=== PATIENT | female | born 1955 | race African-American/Black ===

== ENCOUNTER 2021-03-25 14:02 | Inpatient (IN) ==
[2021-03-25] MEDS ORDERED: HYDROmorphone 2 MG/1 ML VIAL IV STA (14:26)
[2021-03-25] MEDS ORDERED: ONDANSETRON 4 MG/2 ML VIAL IV STA (14:26)
[2021-03-25 14:53] LABS: Basophils % 0.3 % (0.0-0.8); Eosinophils # 0.2 10*3/uL (0.0-0.87); Eosinophils % 2.6 % (0.00-10.9); Hematocrit 33.9 VOL% (35.7-47.0); Hemoglobin 11.2 GM/DL (12.0-16.0); Immature Granulocytes % 0.7 %; Immature Granulocytes Absolute 0.05 #; Lymphocytes # 1.6 10*3/uL (1.4-4.0); Lymphocytes % 22.2 % (21.3-54.2); Mean Corpuscular Volume 93.9 FL (87-102); Mean Platelet Volume 11.4 FL (9.6-12.0); Monocytes % 5.8 % (1.7-12.7); Neutrophils % 68.4 % (38.7-73.9); Platelet Count 168 T/CUMM (130-400); Red Blood Count 3.61 MC/CUMM (3.8-5.5); Red Cell Distribution Width 12.1 % (9.3-17.3); White Blood Count 7.3 T/CUMM (4-12)
[2021-03-25 14:59] LABS: ABG Base Excess -0.6 MMOL/L (-2.5-2.5); ABG HCO3 25.6 MMOL/L (20-26); ABG Oxygen Saturation 87.4 % (95-100); ABG PCO2 48.9 MM HG (35-48); ABG PH 7.337 (7.35-7.45); ABG PO2 60.4 MM HG (80-95); ABG TCO2 27.1 MMOL/L (23-27)
[2021-03-25 15:03] LABS: INR 1.2; PT Patient Result 13.1 SECS (10.5-12.0); Partial Thromboplastin Time 27.2 SECS (23.9-33.8)
[2021-03-25 15:13] LABS: Alanine Aminotransferase 30 U/L (13-56); Albumin 3.6 G/DL (3.4-5.0); Alkaline Phosphatase 97 U/L (45-117); Aspartate Amino Transferase 36 U/L (0-37); Blood Urea Nitrogen 16 MG/DL (7-18); Calcium 9.5 MG/DL (8.5-10.1); Carbon Dioxide 27 MMOL/L (21-32); Estimated Glom Filtration Rate 68 ML/MIN; Glucose 201 MG/DL (74-106); Osmolality,Calculated 283.5 MOS/KG (273-304); Potassium 3.6 MMOL/L (3.5-5.1); Sodium 139 MMOL/L (136-145); Total Protein 7.5 G/DL (6.4-8.2)
[2021-03-25 16:01] LABS: Bilirubin,Urine Negative (Negative); Blood, Urine Negative (Negative); Glucose,Urine (UA) >=500 mg/dL (Negative); Ketones,Urine Negative (Negative); Nitrite,Urine Negative (Negative); Protein,Urine Negative; Squamous Epithelial Cell,Urine Occasional /HPF (0-10); Urine Appearance Slightly Hazy (Clear); Urine Color Yellow (Yellow); Urine Specific Gravity 1.033 (1.001-1.035); Urine Urobilinogen < 2.0 EU/DL (0.2-1.0)
[2021-03-25 16:10] LABS: Barbiturates Screen,Urine Negative (Negative); Benzodiazepines Screen,Urine Positive (Negative); Cannabinoid Screen,Urine Negative (Negative); Opiate Screen,Urine Positive (Negative); Phencyclidine Screen,Urine Negative (Negative)
[2021-03-25] MEDS ORDERED: GLUCAGON 1 MG VIAL IM PRN (16:30)
[2021-03-25] MEDS ORDERED: ONDANSETRON 4 MG/2 ML VIAL IV PRN (16:30)
[2021-03-25] MEDS ORDERED: DEXTROSE 50% 25 GM/50 ML VIAL IV PRN (16:30)
[2021-03-25] MEDS ORDERED: ACETAMINOPHEN 325 MG TABLET PO PRN (16:30)
[2021-03-25] MEDS: LACTATED RINGERS 1,000 ML IV SCH (16:53)
[2021-03-25] MEDS: INSULIN REGULAR 100 UNIT/ML SUBCUT SCH ×2 (16:54→21:04)
[2021-03-25] MEDS: GABAPENTIN 300 MG CAPSULE PO SCH (21:04)
[2021-03-26] MEDS: HYDROmorphone 2 MG/1 ML VIAL IV PRN ×2 (03:46→15:09)
[2021-03-26 05:50] LABS: Basophils % 0.1 % (0.0-0.8); Eosinophils # 0.1 10*3/uL (0.0-0.87); Hemoglobin 10.6 GM/DL (12.0-16.0); Immature Granulocytes % 0.3 %; Immature Granulocytes Absolute 0.03 #; Lymphocytes # 1.9 10*3/uL (1.4-4.0); Lymphocytes % 22.1 % (21.3-54.2); Mean Corpuscular HGB Conc 32.1 GM/DL (32-36); Mean Corpuscular Volume 95.4 FL (87-102); Mean Platelet Volume 12.1 FL (9.6-12.0); Monocytes % 5.9 % (1.7-12.7); Neutrophils % 70.6 % (38.7-73.9); Platelet Count 177 T/CUMM (130-400); Red Blood Count 3.46 MC/CUMM (3.8-5.5); Red Cell Distribution Width 12.1 % (9.3-17.3); White Blood Count 8.8 T/CUMM (4-12)
[2021-03-26 06:16] LABS: Calcium 9.2 MG/DL (8.5-10.1); Osmolality,Calculated 276.8 MOS/KG (273-304); Potassium 3.7 MMOL/L (3.5-5.1)
[2021-03-26] MEDS: GABAPENTIN 300 MG CAPSULE PO SCH ×3 (08:24→20:21)
[2021-03-26] MEDS: PANTOPRAZOLE 40 MG TABLET PO SCH (08:24)
[2021-03-26] MEDS: INSULIN REGULAR 100 UNIT/ML SUBCUT SCH ×4 (08:41→20:22)
[2021-03-26] MEDS: METOPROLOL TARTRATE 50 MG TABLET PO SCH (09:30)
[2021-03-26] MEDS ORDERED: TUBERCULIN SKIN TEST 0.1 ML SYRINGE INTRADERM ONE (11:34)
[2021-03-26] MEDS: LACTATED RINGERS 1,000 ML IV SCH (12:55)
[2021-03-26] MEDS: metFORMIN 500 MG TABLET PO SCH (17:16)
[2021-03-27] MEDS: LACTATED RINGERS 1,000 ML IV SCH ×3 (04:40→20:47)
[2021-03-27] MEDS: INSULIN REGULAR 100 UNIT/ML SUBCUT SCH ×4 (07:35→20:46)
[2021-03-27 07:47] LABS: Basophils % 0.3 % (0.0-0.8); Eosinophils # 0.1 10*3/uL (0.0-0.87); Eosinophils % 2.1 % (0.00-10.9); Hematocrit 31.9 VOL% (35.7-47.0); Hemoglobin 10.6 GM/DL (12.0-16.0); Immature Granulocytes % 0.1 %; Immature Granulocytes Absolute 0.01 #; Lymphocytes % 28.6 % (21.3-54.2); Mean Corpuscular HGB Conc 33.2 GM/DL (32-36); Mean Corpuscular Volume 93.3 FL (87-102); Mean Platelet Volume 11.5 FL (9.6-12.0); Monocytes % 7.2 % (1.7-12.7); Neutrophils % 61.7 % (38.7-73.9); Platelet Count 153 T/CUMM (130-400); Red Blood Count 3.42 MC/CUMM (3.8-5.5); Red Cell Distribution Width 11.9 % (9.3-17.3); White Blood Count 6.8 T/CUMM (4-12)
[2021-03-27 08:08] LABS: Calcium 8.8 MG/DL (8.5-10.1); Osmolality,Calculated 275.7 MOS/KG (273-304); Potassium 4.1 MMOL/L (3.5-5.1)
[2021-03-27] MEDS: metFORMIN 500 MG TABLET PO SCH ×2 (08:17→16:05)
[2021-03-27] MEDS: METOPROLOL TARTRATE 50 MG TABLET PO SCH (08:17)
[2021-03-27] MEDS: PANTOPRAZOLE 40 MG TABLET PO SCH (08:17)
[2021-03-27] MEDS: GABAPENTIN 300 MG CAPSULE PO SCH ×3 (08:17→20:46)
[2021-03-28] MEDS: LACTATED RINGERS 1,000 ML IV SCH ×2 (04:24→17:07)
[2021-03-28] MEDS: INSULIN REGULAR 100 UNIT/ML SUBCUT SCH ×4 (07:18→21:30)
[2021-03-28] MEDS: METOPROLOL TARTRATE 50 MG TABLET PO SCH (09:25)
[2021-03-28] MEDS: metFORMIN 500 MG TABLET PO SCH ×2 (09:25→16:24)
[2021-03-28] MEDS: GABAPENTIN 300 MG CAPSULE PO SCH ×3 (09:25→21:27)
[2021-03-28] MEDS: PANTOPRAZOLE 40 MG TABLET PO SCH (09:34)
[2021-03-28] MEDS: LINACLOTIDE 145 MCG CAPSULE PO SCH (09:34)
[2021-03-28] MEDS ORDERED: ROPIVACAINE 0.5% 30 ML VIAL ONE (10:20)
[2021-03-28] MEDS ORDERED: LIDOCAINE 1% 20 ML VIAL ONE (10:20)
[2021-03-28] MEDS ORDERED: methylPREDNISolone ACETATE 40 MG/1 ML VIAL ONE (10:20)
[2021-03-28] MEDS ORDERED: LIDOCAINE 2% 5 ML VIAL ONE (10:27)
[2021-03-28] MEDS ORDERED: propofoL 200 MG/20 ML VIAL IV ONE (10:27)
[2021-03-28] MEDS ORDERED: fentaNYL 100 MCG/2 ML VIAL ONE (10:27)
[2021-03-28] MEDS ORDERED: GLYCOPYRROLATE 0.4 MG/2 ML VIAL ONE (10:27)
[2021-03-28] MEDS ORDERED: KETAMINE 500 MG/10 ML VIAL ONE (10:28)
[2021-03-28] MEDS ORDERED: MIDAZOLAM 2 MG/2 ML VIAL ONE (10:28)
[2021-03-28] MEDS ORDERED: SODIUM CHLORIDE 0.9% 100 ML IV ONE (10:29)
[2021-03-28] MEDS ORDERED: DEXAMETHASONE 10 MG/1 ML VIAL ONE (11:29)
[2021-03-28] MEDS ORDERED: LACTATED RINGERS 1,000 ML IV SCH (11:30)
[2021-03-28] MEDS ORDERED: TISSUE ADHESIVE 1 EACH APPLICATOR TOP ONE (11:41)
[2021-03-28] MEDS ORDERED: ceFAZolin 1,000 MG VIAL ONE (11:43)
[2021-03-29 06:43] LABS: Basophils % 0.2 % (0.0-0.8); Eosinophils % 0.2 % (0.00-10.9); Hematocrit 27.1 VOL% (35.7-47.0); Hemoglobin 9.3 GM/DL (12.0-16.0); Immature Granulocytes % 0.4 %; Immature Granulocytes Absolute 0.02 #; Lymphocytes # 1.1 10*3/uL (1.4-4.0); Lymphocytes % 19.7 % (21.3-54.2); Mean Corpuscular HGB Conc 34.3 GM/DL (32-36); Mean Corpuscular Volume 91.2 FL (87-102); Mean Platelet Volume 11.3 FL (9.6-12.0); Monocytes % 7.1 % (1.7-12.7); Neutrophils % 72.4 % (38.7-73.9); Platelet Count 165 T/CUMM (130-400); Red Blood Count 2.97 MC/CUMM (3.8-5.5); Red Cell Distribution Width 11.8 % (9.3-17.3); White Blood Count 5.5 T/CUMM (4-12)
[2021-03-29 07:11] LABS: Calcium 8.8 MG/DL (8.5-10.1); Osmolality,Calculated 278.5 MOS/KG (273-304); Potassium 3.7 MMOL/L (3.5-5.1)
[2021-03-29] MEDS: INSULIN REGULAR 100 UNIT/ML SUBCUT SCH ×4 (07:42→20:44)
[2021-03-29] MEDS: PANTOPRAZOLE 40 MG TABLET PO SCH (08:45)
[2021-03-29] MEDS: METOPROLOL TARTRATE 50 MG TABLET PO SCH (08:45)
[2021-03-29] MEDS: metFORMIN 500 MG TABLET PO SCH ×2 (08:45→17:15)
[2021-03-29] MEDS: GABAPENTIN 300 MG CAPSULE PO SCH ×3 (08:45→20:44)
[2021-03-29] MEDS: LINACLOTIDE 145 MCG CAPSULE PO SCH (08:45)
[2021-03-29] MEDS: LACTATED RINGERS 1,000 ML IV SCH (11:26)
[2021-03-29] MEDS: HYDROmorphone 2 MG/1 ML VIAL IV PRN (12:16)
[2021-03-30] MEDS: LACTATED RINGERS 1,000 ML IV SCH (06:43)
[2021-03-30] MEDS: INSULIN REGULAR 100 UNIT/ML SUBCUT SCH ×4 (07:34→20:30)
[2021-03-30] MEDS: metFORMIN 500 MG TABLET PO SCH ×2 (09:09→17:28)
[2021-03-30] MEDS: GABAPENTIN 300 MG CAPSULE PO SCH ×3 (09:09→20:28)
[2021-03-30] MEDS: LINACLOTIDE 145 MCG CAPSULE PO SCH ×2 (09:09→09:13)
[2021-03-30] MEDS: PANTOPRAZOLE 40 MG TABLET PO SCH (09:09)
[2021-03-30] MEDS: METOPROLOL TARTRATE 50 MG TABLET PO SCH (09:09)
[2021-03-30] MEDS: HYDROmorphone 2 MG/1 ML VIAL IV PRN ×2 (10:51→15:06)
[2021-03-31] MEDS: HYDROmorphone 2 MG/1 ML VIAL IV PRN (04:35)
[2021-03-31] MEDS: LACTATED RINGERS 1,000 ML IV SCH (05:40)
[2021-03-31] MEDS: INSULIN REGULAR 100 UNIT/ML SUBCUT SCH ×4 (07:54→21:24)
[2021-03-31] MEDS: metFORMIN 500 MG TABLET PO SCH ×2 (09:21→17:16)
[2021-03-31] MEDS: LINACLOTIDE 145 MCG CAPSULE PO SCH (09:21)
[2021-03-31] MEDS: GABAPENTIN 300 MG CAPSULE PO SCH ×3 (09:22→21:23)
[2021-03-31] MEDS: METOPROLOL TARTRATE 50 MG TABLET PO SCH (09:22)
[2021-03-31] MEDS: PANTOPRAZOLE 40 MG TABLET PO SCH (09:22)
[2021-04-01] MEDS: LACTATED RINGERS 1,000 ML IV SCH (00:21)
[2021-04-01] MEDS: HYDROmorphone 2 MG/1 ML VIAL IV PRN (00:21)
[2021-04-01] MEDS: INSULIN REGULAR 100 UNIT/ML SUBCUT SCH ×3 (08:26→15:33)
[2021-04-01] MEDS: LINACLOTIDE 145 MCG CAPSULE PO SCH (10:12)
[2021-04-01] MEDS: METOPROLOL TARTRATE 50 MG TABLET PO SCH (10:13)
[2021-04-01] MEDS: PANTOPRAZOLE 40 MG TABLET PO SCH (10:13)
[2021-04-01] MEDS: metFORMIN 500 MG TABLET PO SCH ×2 (10:13→16:35)
[2021-04-01] MEDS: GABAPENTIN 300 MG CAPSULE PO SCH ×2 (10:13→14:11)
[2021-04-01 16:17] VITALS: BP 144/66
== END 2021-04-01 17:25 | DRG 478 ==
LOC: EDUNIT# → EDBD → N.ED 14:02 → N.EDINP 16:30 → N.3E 17:01
PROVIDERS: ADMIT Student in an Organized Health Care Education/Training Program; ATTEND Student in an Organized Health Care Education/Training Program